=== PATIENT | male | born 1990 | race Caucasian/White ===

== ENCOUNTER → 2020-03-08 14:05 | Outpatient (BNVA) | payer SELFPAY | PROVIDERS: PCP Family Medicine; Visit Provider Surgery | DX: Z20.822 Contact with and (suspected) exposure to COVID-19 (principal); Z11.52 Encounter for screening for COVID-19 | CPT/HCPCS: 87635 ==

== ENCOUNTER 2020-03-13 05:57 | Day surgery (SDC) | payer SELFPAY ==
[2020-03-09 17:30] VITALS: BMI 39.5
[2020-03-13 06:20] VITALS: BP 152/87; PULSE 77; RESP 18; TEMP 36.4; O2SAT 98
--- NOTE | 2020-03-13 06:27 | W.PM.OPSUD ---
Surgery/Procedure H&P Update DATE OF PROCEDURE: March 13, 2020 DATE H&P PERFORMED: 03/05/20 H&P UPDATE INFORMATION: I have reviewed H&P completed within last 30 days, I have examined patient prior to procedure and Changes to prior documentation as noted here CHANGES TO PREVIOUS DOCUMENTATION: Patient cellulitic changes have gone and the pilonidal cysts looks clinically much better than at the clinic visit without evidence of active infection. PREOP DIAGNOSIS: Pilonidal cyst of the lower back PRIMARY INDICATION FOR PROCEDURE: The same PLANNED PROCEDURE: Operation Date: 03/13/20 07:00 Proposed Procedures p PILONDIDAL CYSTECTOMY OF THE LOWER BACK- 36904 C05.91(Not Applicable) - Adan Richard MD
[2020-03-13] MEDS: sodium chloride 0.9% 1,000 ML 30 ML IV (06:38)
[2020-03-13] MEDS: lidocaine 2% INJ 20 mL INJECTION (08:14)
--- NOTE | 2020-03-13 08:24 | ANES.PREANE2 ---
Pre-Anesthetic Assessment Pre-Anesthetic Assessment: Height/Weight: Height 1.97 m Weight 154.221 kg Temp Pulse Resp BP Pulse Ox 97.5 F L 77 18 152/87 98 03/13/20 06:20 03/13/20 06:20 03/13/20 06:20 03/13/20 06:20 03/13/20 06:20 Preop Diagnosis: Pilonidal cyst of the lower back Proposed Procedure: Operation Date: 03/13/20 07:00 Proposed Procedures p PILONDIDAL CYSTECTOMY OF THE LOWER BACK- 72609 C05.91(Not Applicable) - Adan Richard MD Was Beta Rusty taken within 24 hours: N/A Last intake: Intake Last Liquid Date 03/13/20 Last Liquid Time 04:30 Last Solid Date 03/12/20 Last Solid Time 16:30 Social: Social History: Tobacco and No alcohol Exam: Pre-Anes Outpt Exam: alert, oriented x 3 and regular rate & rhythm Airway: Submandibular: WNL Cervical ROM: WNL MP: 2 Dentition: Full Pulmonary: Pulmonary: COPD Metabolic: Metabolic: Morbid obesity Anesthetic Plan: ASA status: 3 Anesthesia: MAC Risk of > 500 ml blood loss (7ml/kg in children): No Meds/Allergies Current Medications: Current Medications Generic Name Dose Route Start Last Admin Trade Name Freq PRN Reason Stop Dose Admin Sodium Chloride 1,000 mls @ 30 ml s/hr 03/13/20 06:15 03/13/20 06:38 Sodium Chloride 0.9% IV 03/14/20 06:14 30 mls/hr .Q24H LEON Administration PFSH Anesthesia PFSH: Family History Denies family history of Anesthesia complication Bleeding disorder Social History Smoking and tobacco status: current every day smoker Alcohol intake: never Adopted: No Caregiver/support person: Yes Lives independently: Yes Housing: House Current gender identity: Male Annmarie/Yarsani: [employer] Anesthesia Cardiac Studies: No Data to Display
--- NOTE | 2020-03-13 08:40 | P.OP_ITS ---
Operative Report Date of procedure: March 13, 2020 Pre-op Diagnosis: Pilonidal cyst of the lower back Post-op diagnosis: same Procedure Done: Pilonidal cystectomy of the lower back/semiopen technique Specimens removed/disposition: Lower back pilonidal cystectomy sutures marked superior with measurement of 4.3 x 1.5 x 2 cm Post pilonidal cystectomy wound measurements 5 x 2 [address] to the periosteum Surgeon: Adan Richard Dining Room Supervisor: Surgical lito Harrington/Lola Circulating nurse Iris Werner Anesthesia: MAC (cranberry bog supervisor Will Smart) Estimated blood loss (mL): 10 Condition: stable Disposition: same day Brief History: This is a pleasant 29 years old gentleman presented with symptomatic lower back pilonidal cyst that has been infected formed an abscess and was drained, patient was placed on antibiotics and was referred to me for further evaluation. After further history taking physical examination and reviewing the chart I did counsellors the patient for lower back cholecystectomy after subsidence of infection. Informed consent per chart Procedure: After identifying the patient holding area,patient was then taken to the operative suite, was placed in first in supine position IV propofol was infused by the anesthesia provider and,Time-out was done verifying the patient's name/date of /planned procedure and destination after the procedure, all were in agreement. SCDs confirmed to be functioning, preoperative antibiotics administered per protocol, and beta cameron protocol was confirmed, appropriate positioning of the patient was done by me. patient was then placed in left lateral position, right arm was placed in 90? to his body.All pressure points were padded, prep and drape of the lower back region was done under the usual sterile technique. Lubricated lacrimal probe was used to probe a caudad sinus and went all the way cephalad without appreciating more sinuses.Elliptical skin incision was done including original sinus of the anal cleft as well as the previous wound(to the left of the midline) of the previous incision and drainage site,incision was done all the way down to the subcutaneous tissues and periosteal covering the coccyx, dissection was then carried on,pilonidal mass all excised en toto , the mass was oriented by 3-0 nylon sutures in the form of short superior then passed to the circulating nurse for permanent pathology. Sharp debridedment was done for the unhealthy granulation tissues .Hemostasis was then achieved using Bovie cautery, followed by irrigation with normal saline, Vicryl sutures were used as an interrupted sutures, bites were taken from the subdermal level to the periosteum and tied down to make the wound gap more shallow to help healing postoperatively and make the packing easier on the patient, suturing was done in an interrupted circumferential fashion . Local anesthesia 2% lidocaine was infiltrated surrounding the wound cavity, wound was then packed by Surgicel/mini Kerlix impregnated and lidocaine 2% for packing followed by ABDs and tape Count was completed at the end of the procedure Patient was taken to the recovery room in stable condition after extubation I was present for the whole entire procedure
[2020-03-13 08:50] VITALS: BP 128/82; PULSE 89; RESP 16; TEMP 36; O2SAT 96
[2020-03-13 09:05] VITALS: BP 133/73; PULSE 98; RESP 16; TEMP 36.6; O2SAT 98
--- NOTE | 2020-03-13 13:34 | ANE.PACU2 ---
Inpatient post-anesthesia follow up: Airway intact: Yes Vital signs: Temperature 98 F Pulse Rate 98 Respiratory Rate 16 Blood Pressure 133/73 Pulse Oximetry 98 Oxygen Delivery Me thod Room Air Oxygen Flow Rate Fraction of Inspir ed Oxygen Hydration adequate: Yes Nausea and vomiting: No Pain level: 2 Mental status: Baseline
== END 2020-03-13 10:00 | disposition home or self-care (01) ==
PROVIDERS: PCP Family Medicine; Visit Provider Surgery
PROC: (CPT 11770; principal; 2020-03-13 07:00)
DX: L05.91 Pilonidal cyst without abscess (principal); J44.9 Chronic obstructive pulmonary disease, unspecified; E66.01 Morbid (severe) obesity due to excess calories; Z68.39 Body mass index [BMI] 39.0-39.9, adult; F17.210 Nicotine dependence, cigarettes, uncomplicated
CPT/HCPCS: 11770; 12345; 88304; 96365; J0131; J0690; J2704; J3010; J7030

== ENCOUNTER 2020-03-20 12:40 | Emergency (ER) | payer OTHER, SELFPAY ==
[2020-03-20 13:08] VITALS: BP 137/95; PULSE 110; RESP 14; TEMP 37.2; O2SAT 97; BMI 40.3
--- NOTE | 2020-03-20 13:27 | ED_ITS ---
HPI - General Adult General: Chief complaint: General Medical Stated complaint: Post-op infection? Time Seen by Provider: 03/20/20 13:17 Source: patient Mode of arrival: ambulatory Limitations: no limitations History of Present Illness: HPI narrative: Patient is a 29-year-old male who had a pilonidal cyst removed from his lower back 1 week ago and by the surgeon. Patient states that pain in the area is getting worse and the pain medication that he was given, hydrocodone 5/325's are not effective in the pain. He also states that he is girlfriend has been doing his wound dressings and when she was changing his wound dressing today he noticed a foul odor as well as some drainage from the wound. Because of these he came in here to be evaluated. Is worried about an infecti on. Associated symptoms: Deny dyspnea, headache(s), nausea, rash, palpitations or vomiting Review of Systems General: Reports: 10 or more systems reviewed and unremarkable except in HPI and below Const: Denies: fever(s), chills or body aches Eyes: Denies: change in vision or blurry vision ENMT: Denies: throat pain, enlarged tonsils, odynophagia, hoarseness, mouth pain or swelling of lips/tongue Card: Denies: palpitations, irregular heart rhythm, edema or swelling of feet/ankles Resp: Denies: dyspnea, productive cough or non-productive cough GI: Denies: abdominal pain, nausea or vomiting : Denies: flank pain, dysuria, urinary frequency, urinary urgency or urinary hesitancy Musc: Denies: neck pain, back pain or extremity swelling Skin/Breast: Reports: surgical incision; Denies: rash, pruritus or erythema Neuro: Denies: headache(s), numbness in extremities or weakness in extremities Endo: Denies: polyuria, polydipsia or tired all the time PFSH ED PFSH: Family History Denies family history of Anesthesia complication Bleeding disorder Social History Smoking and tobacco status: current every day smoker Alcohol intake: never Adopted: No Caregiver/support person: Yes Lives independently: Yes Housing: House Current gender identity: Male Annmarie/Protestant: Sabianism Physical Exam Const: COMMON NORMALS: no acute distress, average body habitus, patient oriented x3, no limitations, healthy appearing, alert and well nourished Neck/C-Spine: COMMON NORMALS: no meningeal signs and no JVD Resp: COMMON NORMALS: normal respiratory effort, No retractions, No use of accessory muscles, clear to auscultation bilaterally and percussion normal AUSCULTATION: clear to auscultation bilaterally PERCUSSION: percussion normal Cardio: COMMON NORMALS: no JVD, regular rate, regular rhythm, S1 normal heart sound present, S2 normal heart sound present, No gallops present (Cardio), No clicks present (Cardio), No murmurs present (Cardio), No rub (Cardio) and Peripheral pulses 2+ throughout RATE: regular rate RHYTHM: regular rhythm HEART SOUNDS: S1 normal heart sound present and S2 normal heart sound present PERIPHERAL PULSES: Peripheral pulses 2+ throughout GI: COMMON NORMALS: Normal to inspection, nondistended, normoactive bowel sounds present, Soft to palpation, non-tender, No hepatosplenomegaly present, no masses and no bruits PALPATION: Yes Soft to palpation and Yes No hepatosplenomegaly present Back/Pelvis: OTHER: Lower back surgical wound evaluated. No obvious drainage noted, no malodorous scent obtained. There is very little whitish slough at the base of the wound, otherwise unremarkable. No significant erythema around the wound. Extremity: COMMON NORMALS: normal to inspection, full ROM, capillary refill normal, no calf tenderness and no pedal edema Neuro: COMMON NORMALS: patient oriented x3 SENSORIUM/ORIENTATION: Yes alert MENINGEAL SIGNS: Yes no meningeal signs Skin: COMMON NORMALS: no rashes or lesions noted, no wounds, turgor normal, no jaundice, no petechiae and no mottling GENERAL SKIN EXAM: no rashes or lesions noted and turgor normal Course Reevaluation(s): Reevaluation #1: Explained my conversation with the surgeon, and my examination findings. We will discharge him home on oral antibiotic and increase the dose of his hydrocodone. He will follow-up with Dr. Richard in the office. Time: 14:25 Consultations: Consultation #1: Discussed the patient with Dr. Richard, surgeon who performed the surgery and he advised that I start him on Bactrim double strength and he will be seen in the office. Time: 14:20 Vital Signs: Vital signs: Vital Signs Temperature 99.0 F 03/20/20 13:08 Pulse Rate 110 H 03/20/20 13:08 Respiratory Rate 14 03/20/20 13:08 Blood Pressure 137/95 03/20/20 13:08 Pulse Oximetry 97 03/20/20 13:08 MDM - General Adult MDM Narrative: Medical decision making narrative: This 29-year-old male who had a pilonidal cyst removal 1 week ago presents with concerns of wound infection. Evaluation of the wound does not show any significant infection but he is placed on prophylactic antibiotic. He also had significant postop pain and was discharged home with hydrocodone acetaminophen 's. He is to follow-up with the surgeon in the office tomorrow as scheduled. Medical Records: Attestation: I reviewed the patient's medical records. Discharge Plan Discharge Patient Disposition: Home Clinical Impression: Pilonidal cyst, History of excision of pilonidal cyst Condition: Stable Prescriptions: New Bactrim DS 800-160 mg tablet 1 tab PO BID 7 Days Qty: 14 RF: 0 [place] 10-325 mg tablet 1 tab PO Q8H PRN (Reason: pain) Qty: 12 RF: 0 Continued multivitamin Tablet 1 tab PO DAILY RF: 0 [place]'s wort 1 tab PO DAILY RF: 0 Vitamin B-12 1 tab PO DAILY RF: 0 magnesium oxide 1 tab PO DAILY RF: 0 Discharge Orders: Discharge ED (Routine); Ordered 03/20/20 Ordered By: Toño Duncan Referrals: Adan Richard MD [Physician] - 03/21/20 (as scheduled) Rony Stubbs [Primary Care Provider] - Discharge Diet: Usual diet Discharge Activity: Increase activity as tolerated Patient Instructions: Pilonidal Cyst (GEN) Activity Restrictions/Additional Instructions: Return for any new or worsening symptoms. Follow-up with Dr. Richard tomorrow as scheduled. Take the antibiotic as prescribed and also take the pain medication as needed. Coding Level of Care Code ED Executive Chairman Of The Board for Rahat Jeff
[2020-03-20] MEDS: cefTRIAXone 1,000 MG in lidocaine 1% 2.1 ML 100 MG IM (14:54)
== END 2020-03-20 15:15 | disposition home or self-care (01) ==
PROVIDERS: Emergency Provider Family Medicine; PCP Family Medicine
DX: G89.18 Other acute postprocedural pain (principal); F17.210 Nicotine dependence, cigarettes, uncomplicated
CPT/HCPCS: 12345; 96372; 99281; 99283; J0696

== ENCOUNTER 2020-04-13 10:04 | Outpatient (CLI) | payer OTHER, SELFPAY | END 2020-04-13 10:05 | disposition home or self-care (01) | LOC: WOUND 10:04 | PROVIDERS: PCP Family Medicine; Visit Provider Surgery | DX: T81.89XA Other complications of procedures, not elsewhere classified, initial encounter (principal) | CPT/HCPCS: 11043; G0463 ==

== ENCOUNTER 2020-04-20 10:26 | Outpatient (CLI) | payer OTHER, SELFPAY | END 2020-04-20 10:27 | disposition home or self-care (01) | LOC: WOUND 10:27 | PROVIDERS: PCP Family Medicine; Visit Provider Surgery | DX: L05.01 Pilonidal cyst with abscess (principal) | CPT/HCPCS: 11043 ==

== ENCOUNTER 2020-04-27 11:05 | Outpatient (CLI) | payer OTHER, SELFPAY | END 2020-04-27 11:06 | disposition home or self-care (01) | LOC: WOUND 11:05 | PROVIDERS: PCP Family Medicine; Visit Provider Surgery | DX: T81.89XA Other complications of procedures, not elsewhere classified, initial encounter (principal) | CPT/HCPCS: 11042 ==

== ENCOUNTER 2020-05-04 13:19 | Outpatient (CLI) | payer OTHER, SELFPAY | END 2020-05-04 13:20 | disposition home or self-care (01) | LOC: WOUND 13:20 | PROVIDERS: PCP Family Medicine; Visit Provider Nurse Practitioner Family | DX: T81.89XA Other complications of procedures, not elsewhere classified, initial encounter (principal) | CPT/HCPCS: 11042 ==

== ENCOUNTER 2020-05-11 14:21 | Outpatient (CLI) | payer OTHER, SELFPAY | END 2020-05-11 14:22 | disposition home or self-care (01) | LOC: WOUND 14:22 | PROVIDERS: PCP Family Medicine; Visit Provider Surgery | DX: T81.89XA Other complications of procedures, not elsewhere classified, initial encounter (principal) | CPT/HCPCS: 11043 ==

== ENCOUNTER 2020-05-18 13:57 | Outpatient (CLI) | payer OTHER, SELFPAY | END 2020-05-18 13:58 | disposition home or self-care (01) | LOC: WOUND 14:02 | PROVIDERS: PCP Family Medicine; Visit Provider Surgery | DX: T81.89XA Other complications of procedures, not elsewhere classified, initial encounter (principal) | CPT/HCPCS: 11042 ==

== ENCOUNTER 2020-05-25 14:18 | Outpatient (CLI) | payer OTHER, SELFPAY | END 2020-05-25 14:19 | disposition home or self-care (01) | LOC: WOUND 14:18 | PROVIDERS: PCP Family Medicine; Visit Provider Surgery | DX: L98.492 Non-pressure chronic ulcer of skin of other sites with fat layer exposed (principal) | CPT/HCPCS: 11042 ==

== ENCOUNTER 2020-06-01 08:06 | Outpatient (CLI) | payer OTHER, SELFPAY | END 2020-06-01 08:07 | disposition home or self-care (01) | LOC: WOUND 08:07 | PROVIDERS: PCP Family Medicine; Visit Provider Surgery | DX: T81.89XA Other complications of procedures, not elsewhere classified, initial encounter (principal) | CPT/HCPCS: 11042 ==

== ENCOUNTER 2020-06-15 10:05 | Outpatient (CLI) | payer OTHER, SELFPAY | END 2020-06-15 10:06 | disposition home or self-care (01) | LOC: WOUND 10:06 | PROVIDERS: PCP Family Medicine; Visit Provider Nurse Practitioner Family | DX: Z09 Encounter for follow-up examination after completed treatment for conditions other than malignant neoplasm (principal) | CPT/HCPCS: 99212 ==

== ENCOUNTER 2020-08-01 00:54 | Emergency (ER) | payer OTHER, SELFPAY ==
[2020-08-01 01:03] VITALS: BP 148/82; PULSE 85; RESP 18; TEMP 36.3; O2SAT 95; BMI 36.7
--- NOTE | 2020-08-01 03:00 | ED_ITS ---
HPI - Back Pain/Injury General: Chief Complaint: Back Pain/Injury Stated Complaint: back pain, congestion Time Seen by Provider: 08/01/20 02:51 History of Present Illness: HPI Narrative: This patient is a 29-year-old male who presents to the emergency department complaining of bilateral low back pain. Patient states he also went to the bathroom when he thought he saw blood in his urine. 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 MD elicited complaint: back pain Associated symptoms: Deny abdominal pain, chills, dysuria, fatigue, fever(s), nausea, urinary urgency or vomiting Review of Systems General: Reports: 10 or more systems reviewed and unremarkable except in HPI and below Const: Denies: fever(s), chills, body aches or fatigue Eyes: Denies: change in vision or blurry vision ENMT: Denies: throat pain, hoarseness or mouth pain Card: Denies: chest pain, palpitations, irregular heart rhythm, edema, swelling of feet/ankles or lightheadedness Resp: Denies: dyspnea, productive cough, non-productive cough, wheezing or pain on inspiration GI: Denies: abdominal pain, nausea or vomiting : Denies: flank pain, dysuria, urinary frequency, urinary urgency or urinary hesitancy Musc: Reports: back pain; Denies: neck pain, extremity pain, extremity swelling, joint pain, joint swelling, joint redness, joint warmth or limited range of motion Skin/Breast: Denies: rash, pruritus, erythema or skin tenderness Neuro: Denies: headache(s), numbness in extremities or weakness in extremities Psych: Denies: anxiety or depression PFS ED PFSH: Medical History Infected pilonidal cyst Family History Denies family history of Anesthesia complication Bleeding disorder Social History Smoking and tobacco status: current every day smoker Alcohol intake: never Adopted: No Caregiver/support person: Yes Lives independently: Yes Housing: House Current gender identity: Male Annmarie/Christianity: Church Physical Exam Const: COMMON NORMALS: no acute distress, average body habitus, patient oriented x3, no limitations, healthy appearing, alert and well nourished HENMT: COMMON NORMALS: normocephalic, atraumatic, hearing grossly normal bilaterally, external ears normal, EAC's normal, TM's normal bilaterally, Normal external nose present, Normal nasal mucous membranes and turbinates present, moist oral mucous membranes, oropharynx normal, dentition normal and gingiva normal HEAD & SCALP: normocephalic and atraumatic NOSE: Normal external nose present and Normal nasal mucous membranes and turbinates present EXTERNAL EAR: Yes external ears normal EXTERNAL AUDITORY CANAL: EAC's normal TYMPANIC MEMBRANE: TM's normal bilaterally Neck/C-Spine: COMMON NORMALS: full ROM, no lymphadenopathy, supple, no meningeal signs, no JVD, Thyroid normal and No carotid bruits THYROID: Thyroid normal Chest: COMMONS NORMALS: normal inspection of the chest, normal palpation of entire chest wall, normal inspection of the breasts and normal palpation of the breasts Breast/axilla inspection: Yes normal inspection of the breasts BREAST/AXILLA PALPATION: Yes normal palpation of the breasts Resp: COMMON NORMALS: normal respiratory effort, No retractions, No use of accessory muscles, clear to auscultation bilaterally and percussion normal AUSCULTATION: clear to auscultation bilaterally PERCUSSION: percussion normal Cardio: COMMON NORMALS: no JVD, regular rate, regular rhythm, S1 normal heart sound present, S2 normal heart sound present, No gallops present (Cardio), No clicks present (Cardio), No murmurs present (Cardio), No rub (Cardio) and Peripheral pulses 2+ throughout RATE: regular rate RHYTHM: regular rhythm HEART SOUNDS: S1 normal heart sound present and S2 normal heart sound present PERIPHERAL PULSES: Peripheral pulses 2+ throughout GI: COMMON NORMALS: Normal to inspection, nondistended, normoactive bowel sounds present, Soft to palpation, non-tender, No hepatosplenomegaly present, no masses and no bruits PALPATION: Yes Soft to palpation and Yes No hepatosplenomegaly present : COMMON NORMALS: Yes no CVA tenderness BLADDER/KIDNEY EXAM: Yes no CVA tenderness Back/Pelvis: COMMON NORMALS: no CVA tenderness, thoracic and lumbar spine normal to inspection, no thoracic nor lumbar tenderness, thoraco-lumbar ROM nor mal and straight leg raise negative bilaterally Extremity: COMMON NORMALS: normal to inspection, full ROM, capillary refill normal, no joint enlargement, no clubbing, cyanosis or edema, no calf tenderness and no pedal edema Neuro: COMMON NORMALS: patient oriented x3 SENSORIUM/ORIENTATION: Yes alert MENINGEAL SIGNS: Yes no meningeal signs Course Reevaluation(s): Reevaluation #1: Negative evaluation in the emergency room for any acute findings. Discussed and patient's history he states that he does have a history of herpes but states he never has had a flare and has tested positive for herpes. Patient described the blood per urine is just some pinkish fluid that came out at the end of urination with some pain. We did discuss options. Patient will be given diclofenac as needed for back strain. Patient also be started on acyclovir. Patient should follow-up primary care physician. Patient should encourage p.o. fluids. Patient states understanding is discharged Time: 03:27 Vital Signs: Vital signs: Vital Signs Temperature 97.3 F L 08/01/20 01:03 Pulse Rate 85 08/01/20 01:03 Respiratory Rate 18 08/01/20 01:03 Blood Pressure 148/82 08/01/20 01:03 Pulse Oximetry 95 08/01/20 01:03 MDM - Back Pain/Injury Lab Data: Labs: Lab Results 08/01/20 08/01/20 Range/Units 03:03 03:03 Urine Color Valeria (Yellow) Urine Appearance Clear (CLEAR) Urine pH 5 (5-7) Ur Specific Gravit y 1.020 (1.005-1.030) Urine Protein Trace (Negative) Urine Glucose (UA) Norm (Normal) Urine Ketones 1+ H (Negative) Urine Blood Neg (Negative) Urine Nitrate Negative (Negative) Urine Bilirubin 1+ H (Negative) Urine Urobilinogen 1 H (Negative) mg/dL Ur Leukocyte Carol ase Negative (Negative) Urine RBC 0-4 H (0-2) /hpf Urine WBC 0-4 H (0-5) /hpf Ur Squamous Epith Cells 0-4 H (0-5) /hpf Amorphous Sediment Not Reportable Urine Bacteria Trace (NONE) /hpf Urine Mucus 3+ /hpf Urine Opiates Scre en Negative (Negative) ng/mL Ur Barbiturates Sc reen Negative (Negative) ng/mL Ur Phencyclidine S crn Negative (Negative) ng/mL Ur Amphetamines Sc reen Negative (Negative) ng/mL U Benzodiazepines Scrn Negative (Negative) ng/mL Urine Cocaine Scre en Negative (Negative) ng/mL U Marijuana (THC) Screen Positive H (Negative) ng/mL Discharge Plan Discharge Patient Disposition: Home Clinical Impression: Strain of lumbar region, History of herpes genitalis Condition: Stable Prescriptions: New diclofenac sodium 75 mg tablet,delayed release (DR/EC) 75 mg PO BID PRN (Reason: pain) Qty: 20 RF: 0 acyclovir 800 mg tablet 800 mg PO 5XD Qty: 30 RF: 0 No Action multivitamin Tablet 1 tab PO DAILY RF: 0 [place]'s wort 1 tab PO DAILY RF: 0 Vitamin B-12 1 tab PO DAILY RF: 0 magnesium oxide 1 tab PO DAILY RF: 0 [place] 10-325 mg tablet 1 tab PO Q8H PRN (Reason: pain) Qty: 12 RF: 0 Discharge Orders: Discharge ED (Routine); Ordered 08/01/20 Ordered By: Jerry Jasso Discharge Diet: Advance as tolerated Discharge Activity: Resume usual activity Patient Instructions: Opioid Safety Activity Restrictions/Additional Instructions: Patient will be given diclofenac as needed for back strain. Patient also be started on acyclovir. Patient should follow-up primary care physician. Patient should encourage p.o. fluids. Patient states understanding is discharged. Patient needs to alternate heating pad and ice as needed for low back pain. Patient also encouraged to some stretching. Patient should return to the emerge ncy department symptoms fail to improve or worsen Coding Level of Care Code ED Electrical Appliance Repairer for Rahat Jeff Exam Comprehensive
[2020-08-01 03:18] LABS: Amphetamines Screen Urine Negative (Negative); Barbiturates Screen Urine Negative (Negative); Benzodiazepines Screen Urine Negative (Negative); Cocaine Screen Urine Negative (Negative); Opiate Screen Urine Negative (Negative); PCP Screen Urine Negative (Negative); THC Screen Urine Positive (Negative)
[2020-08-01 03:20] LABS: Add Urine Microscopic? YES; Bacteria Urine TRACE /hpf; Bilirubin Urine 1+ (Negative); Blood Urine Neg (Negative); Glucose Urine UA Norm (Normal); Ketones Urine 1+ (Negative); Leukocyte Esterase Urine Negative (Negative); Mucus Urine 3+ /hpf; Nitrate Urine Negative (Negative); Protein Urine Trace (Negative); RBC Urine 0-4 /hpf (0-2); Squamous Epithelial Cell Urine 0-4 /hpf (0-5); Urine Appearance Clear (CLEAR); Urine Color Amber (Yellow); Urobilinogen Urine 1 mg/dL (Negative); WBC Urine 0-4 /hpf (0-5); pH Urine 5 (5-7)
[2020-08-01 03:35] VITALS: PULSE 84; RESP 16; O2SAT 98
== END 2020-08-01 03:35 | disposition home or self-care (01) ==
PROVIDERS: Physician Assistant; Emergency Provider Emergency Medicine
DX: S39.012A Strain of muscle, fascia and tendon of lower back, initial encounter (principal); F17.210 Nicotine dependence, cigarettes, uncomplicated; X50.0XXA Overexertion from strenuous movement or load, initial encounter
CPT/HCPCS: 80306; 81001; 99282

== ENCOUNTER → 2022-04-12 13:39 | Outpatient (BNVA) | payer OTHER, SELFPAY | PROVIDERS: Visit Provider Emergency Medicine | DX: J02.9 Acute pharyngitis, unspecified (principal) | CPT/HCPCS: 87071; 87880 ==

== ENCOUNTER 2024-06-06 15:42 | Emergency (ER) | payer OTHER, SELFPAY ==
[2024-06-06 15:46] VITALS: BP 177/112; PULSE 84; TEMP 36.7; O2SAT 97; BMI 38.1
[2024-06-06 16:17] VITALS: BP 164/99; PULSE 76; O2SAT 95
--- NOTE | 2024-06-06 16:20 | CTR_ITS ---
PROCEDURE INFORMATION: Exam: CT Head Without Contrast Exam date and time: 06/06/2024 4:48 PM Age: 33 years old Clinical indication: Other: Double vision; Additional info: Elevated blood pressure, dbl vision TECHNIQUE: Imaging protocol: Computed tomography of the head without contrast. Axial, coronal and sagittal reformatted images were created and reviewed. Radiation optimization: All CT scans at this facility use at least one of these dose optimization techniques: automated exposure control; mA and/or kV adjustment per patient size (includes targeted exams where dose is matched to clinical indication); or iterative reconstruction. COMPARISON: No relevant prior studies available. RADIATION DOSE METRICS: Total DLP (mGy-cm): 1125.2 FINDINGS: Brain: No CT evidence of acute intracranial hemorrhage or acute territorial infarction. No significant mass effect or midline shift. Basal cisterns patent. Cerebral ventricles: Normal in size and configuration. Paranasal sinuses: Minimal ethmoid mucosal thickening. No air-fluid levels. Mastoid air cells: Partial opacification and sclerosis of the mastoid air cells. Bones: Unremarkable. No acute fracture. Soft tissues: Grossly unremarkable. CT/CT head wo con* [id number] [address]: 1[address] No CT evidence of acute intracranial pathology. 2. Additional findings, as above.
[2024-06-06 16:30] VITALS: BP 178/93; PULSE 70; RESP 20; O2SAT 96
--- NOTE | 2024-06-06 16:35 | W.ED.GENADLT ---
HPI - General Adult General: Chief complaint: General Medical Stated complaint: high bp, double vision Time Seen by Provider: 06/06/24 16:19 History of Present Illness: 33-year-old male presents emergency room complaint of elevated blood pressure intermittent double vision this been going on for the last several days. He notices the vision intermittently will give double vision. Notices predominantly when he looks to the left. He has no headache no double vision at this time. Associated symptoms: Reports chest pain (Left rib pain); Deny dyspnea or rash Related Data Home Medications ?Medication ?Instructions ?Recorded ?Confirmed amlodipine 5 mg tablet 5 mg PO DAILY 06/06/24 06/06/24 lisinopril 20 mg tablet 20 mg PO DAILY 06/06/24 06/06/24 Previous Rx's ?Medication ?Instructions ?Recorded metoprolol succinate 25 mg 12.5 mg (1/2 x 25 mg) PO DAILY #15 06/06/24 tablet,extended release 24 hr tabs (Toprol XL) Allergies Allergy/AdvReac Type Severity Reaction Status Date / Time No Known Allergies Allergy Verified 06/06/24 15:52 Review of Systems Const: Denies: fever(s) or chills Eyes: Reports: change in vision Card: Reports: chest pain (Left rib pain) Resp: Denies: dyspnea GI: Denies: abdominal pain : Denies: dysuria, urinary frequency or urinary urgency Musc: Denies: neck pain or back pain Skin/Breast: Denies: rash PFSH ED PFSH: Medical History Infected pilonidal cyst Family History Denies family history of Anesthesia complication Bleeding disorder Social History Smoking and tobacco/nicotine status: current every day tobacco/nicotine user Alcohol intake: never Substance/Drug Use: never Adopted: No Caregiver/support person: Yes Lives independently: Yes Housing: House Current gender identity: Male Annmarie/Religious: Spiritism Physical Exam Const: GENERAL APPEARANCE: cooperative ORIENTATION/CONSCIOUSNESS: Yes awake, Yes oriented to person, Yes oriented to place and Yes oriented to time HENMT: COMMON NORMALS: normocephalic, atraumatic and hearing grossly normal bilaterally HEAD & SCALP: normocephalic and atraumatic Eye: COMMON NORMALS: Equal, round and reactive pupils present, EOMs intact bilaterally, conjunctivae normal and no scleral icterus GENERAL EYE: appearance normal, both eyes and all related structures VISUAL ACUITY: Yes acuity normal VISUAL BENSON: No peripheral vision loss and No central vision loss CONJUNCTIVA: Yes conjunctivae normal PUPIL: Yes Equal, round and reactive pupils present OTHER: Peripheral vision testing is normal. Patient able to light identify correctly number of fingers shown in his peripheral vision and central vision with 1 mistake in approximately 10-12 tests. 1 test was in the left lateral peripheral visual field. When tested in the left lateral superior inferior visual benson patient is normal Resp: COMMON NORMALS: normal respiratory effort, No retractions and No use of accessory muscles AUSCULTATION: wheezes (Scant) Cardio: COMMON NORMALS: regular rate, regular rhythm and No murmurs present (Cardio) RATE: regular rate RHYTHM: regular rhythm GI: COMMON NORMALS: Soft to palpation and No hepatosplenomegaly present AUSCULTATION: Yes normoactive bowel sounds PALPATION: Yes Soft to palpation, No Tenderness to palpation present (GI), No Guarding due to palpation present (GI) and Yes No hepatosplenomegaly present Extremity: COMMON NORMALS: normal to inspection, capillary refill normal, no clubbing, cyanosis or edema, no calf tenderness and no pedal edema Neuro: SENSORIUM/ORIENTATION: Yes oriented to person, Yes oriented to place and Yes oriented to time Skin: COMMON NORMALS: no rashes or lesions noted GENERAL SKIN EXAM: no rashes or lesions noted Course Vital Signs: Vital signs: Vital Signs Temperature 98.1 F 06/06/24 15:46 Pulse Rate 76 06/06/24 17:45 Respiratory Rate 19 H 06/06/24 17:30 Blood Pressure 167/104 06/06/24 17:45 Pulse Oximetry 99 06/06/24 17:45 Oxygen Delivery Me thod Room Air 06/06/24 17:[address] [facility] - General Adult Medical Decision Making Blood pressure controlled. Patient did not demonstrate significant double vision he was when testing his peripheral vision he was able to identify and count numbers of fingers fairly reliably he did miss 1 time all other testings he correctly identified the number of fingers shown in his peripheral vision central vision also did well with no reports of double vision on testing. His blood pressure is improved we will discharge him home his NPH started him on amlodipine continue lisinopril start amlodipine add Toprol-XL 12.5 p.o. daily recheck his blood pressure with his primary care doctor within a week case management make arrangements for him to follow-up with ophthalmology. Based on his testing and his report of double vision when he looks to the left suspect it is a lateral rectus palsy Medical Records I reviewed the patient's medical records. Lab Data I reviewed the patient's lab results. 06/06/24 16:28 06/06/24 16:[address] 06/06/24 16:20 IMPRESSION: 1. No CT evidence of acute intracranial pathology. 2. Additional findings, as above. Laboratory Results WBC 7.54 10^3/uL (3.29-11.43) 06/06/24 16:28 RBC 4.89 10^6/uL (3.85-5.65) 06/06/24 16:28 Hgb 14.10 g/dL (11.27-16.99) 06/06/24 16:28 Hct 41.8 % (37-53) 06/06/24 16:28 MCV 85.5 fl (82-101) 06/06/24 16:28 MCH 28.8 pg (27-33) 06/06/24 16:28 MCHC 33.7 g/dL (30-55) 06/06/24 16:28 RDW 12.5 % (12.1-15.1) 06/06/24 16:28 Plt Count 181 10^3/cmm (157-399) 06/06/24 16:28 MPV 10.9 fL (7.4-10.4) H 06/06/24 16:28 Neut % (Auto) 61.9 % 06/06/24 16:28 Lymph % (Auto) 26.3 % 06/06/24 16:28 Dodge % (Auto) 7.7 % 06/06/24 16:28 Eos % (Auto) 3.3 % 06/06/24 16:28 Baso % (Auto) 0.5 % 06/06/24 16:28 Neut # (Auto) 4.67 10^3/uL (1.8-7.7) 06/06/24 16:28 Lymph # (Auto) 2.0 10^3/uL (0.8-4.8) 06/06/24 16:28 Dodge # (Auto) 0.6 10^3/uL (0.2-0.9) 06/06/24 16:28 Eos # (Auto) 0.3 10^3/uL (0.0-0.8) 06/06/24 16:28 Baso # (Auto) 0.0 10^3/uL (0.0-0.1) 06/06/24 16:28 Nucleated RBC % (auto) 0 % 06/06/24 16: Nucleated RBCs # 0.0 /100WBC 06/06/24 16:28 Sodium 137 mmol/L (136-145) 06/06/24 16: Potassium 4.1 mmol/L (3.5-5.1) 06/06/24 16: Chloride 103 mmol/L (98-107) 06/06/24 16: Carbon Dioxide 24 mmol/L (22-29) 06/06/24 16:28 Anion Gap 14.1 (5-19) 06/06/24 16:28 BUN 15 mg/dL (6-20) 06/06/24 16:28 Creatinine 0.7 mg/dL (0.7-1.2) 06/06/24 16:28 GFR Calculation 128.3 mL/min (90-130) 06/06/24 16:28 Glucose 144 mg/dL (65-115) H 06/06/24 16:28 Calculated Osmolality 287 mOsm/kg (285-295) 06/06/24 16:28 Calcium 9.7 mg/dL (8.5-10.5) 06/06/24 16:28 Total Bilirubin 0.6 mg/dL (0.15-1.2) 06/06/24 16: AST 29 U/L (0-40) 06/06/24 16:28 ALT 64 U/L (0-41) H 06/06/24 16:28 Alkaline Phosphatase 48 U/L (40-130) 06/06/24 16:28 Total Protein 7.3 g/dL (6.6-8.7) 06/06/24 16:28 Albumin 4.5 g/dL (3.5-5.2) 06/06/24 16:28 Globulin 2.8 g/dL (1.3-4.6) 06/06/24 16:28 All radiology interpretation(s) finalized by discharge Discharge Plan Discharge Patient Disposition: Home Clinical Impression: Hypertension, Double vision Condition: Stable Prescriptions: New metoprolol succinate [Toprol XL] 25 mg tablet extended release 24 hr 12.5 mg PO DAILY Qty: 15 0RF No Action lisinopril 20 mg tablet 20 mg PO DAILY amlodipine 5 mg tablet 5 mg PO DAILY Discharge Orders: Discharge ED (Routine); Ordered 06/06/24 Ordered By: Roberto Loera Discharge Diet: Usual diet Discharge Activity: Resume usual activity Patient Instructions: Opioid Safety, Pain Management Activity Restrictions/Additional Instructions: Thank you for choosing [facility] for your healthcare needs today. It is very important that you follow up as instructed or that you return to the Emergency Department should you have concerns or if your condition changes or worsens in any way. You are seen in the emergency room with complaints of intermittent double vision and elevated blood pressure. Your blood pressure did improve with the medications you were given. Will increase your amlodipine to 10 mg daily and add metoprolol 12.5 mg daily. Follow-up with your doctor within 1 week to recheck your blood pressure case management make arrangements for you to follow-up with ophthalmology regarding her double vision you may need further advanced imaging CT done today was normal. Print Language: Hungarian Coding Level of Care Code ED [employer] for Rahat Jeff
[2024-06-06 16:42] LABS: Basophils % 0.5 %; Eosinophils # 0.3 10^3/uL (0.0-0.8); Eosinophils % 3.3 %; Hematocrit 41.8 % (37-53); Lymphocytes % 26.3 %; Mean Corpuscular HGB Conc 33.7 g/dL (30-55); Mean Corpuscular Hemoglobin 28.8 pg (27-33); Mean Corpuscular Volume 85.5 fl (82-101); Mean Platelet Volume 10.9 fL (7.4-10.4); Monocytes # 0.6 10^3/uL (0.2-0.9); Monocytes % 7.7 %; Neutrophils # 4.67 10^3/uL (1.8-7.7); Neutrophils % 61.9 %; Nucleated Red Blood Cells % 0 %; Platelet Count 181 10^3/cmm (157-399); Red Blood Count 4.89 10^6/uL (3.85-5.65); Red Cell Distribution Width 12.5 % (12.1-15.1); White Blood Count 7.54 10^3/uL (3.29-11.43)
[2024-06-06] MEDS: amlodipine 10 mg Tablet PO (16:57)
[2024-06-06 17:00] VITALS: BP 173/110; PULSE 73; RESP 18; O2SAT 98
[2024-06-06 17:01] LABS: Alanine Aminotransferase 64 U/L (0-41); Albumin Level 4.5 g/dL (3.5-5.2); Alkaline Phosphatase 48 U/L (40-130); Anion Gap 14.1 (5-19); Aspartate Amino Transferase 29 U/L (0-40); Blood Urea Nitrogen 15 mg/dL (6-20); Calcium 9.7 mg/dL (8.5-10.5); Carbon Dioxide 24 mmol/L (22-29); Chloride 103 mmol/L (98-107); Creatinine Clr Calc Pharmacy 238.9875; Globulin 2.8 g/dL (1.3-4.6); Glomerular Filtration Rate 128.3 mL/min (90-130); Glucose 144 mg/dL (65-115); Osmolality Calculated 287 mOsm/kg (285-295); Potassium 4.1 mmol/L (3.5-5.1); Sodium 137 mmol/L (136-145); Total Bilirubin 0.6 mg/dL (0.15-1.2); Total Protein 7.3 g/dL (6.6-8.7)
--- NOTE | 2024-06-06 17:11 | ECG_ITS ---
[employer] [facility] Test Date: 2024-06-06 Pat Name: Sergey Marcos Department: Room: Gender: Male Director Hospice Operations: : 1990 Requested By: Roberto Henry Order Number: [id number] Laz MD: Isac Cárdenas M.D. Measurements Intervals [place] Rate: 79 P: 42 WI: 173 QRS: 30 QRSD: 96 T: 40 QT: 368 QTc: 424 Interpretive Statements SINUS RHYTHM INTERPRETATION BASED ON A DEFAULT AGE OF 40 YEARS No previous ECG available for comparison Electronically Signed On 06-06-2024 18:50:55 CDT by Isac Cárdenas M.D. [id number] [id number]
[2024-06-06 17:30] VITALS: BP 167/104; PULSE 76; RESP 19
[2024-06-06 17:45] VITALS: BP 167/104; PULSE 76; O2SAT 99
--- NOTE | 2024-06-08 08:19 | DCPLANNER ---
Referral sent to [facility] [place]
== END 2024-06-06 17:45 | disposition home or self-care (01) ==
PROVIDERS: Emergency Provider Family Medicine
DX: I10 Essential (primary) hypertension (principal); H53.2 Diplopia; Z72.0 Tobacco use
CPT/HCPCS: 36415; 70450; 80053; 85025; 93005; 99284; J9999